=== PATIENT | female | born 1985 | race Caucasian/White ===

== ENCOUNTER 2023-01-21 18:42 | Inpatient (IN) | payer OTHER ==
[2023-01-21 18:54] VITALS: BMI 29.0
[2023-01-21] MEDS ORDERED: DEXTROSE 50%-WATER - 25 GM/50 ML VIAL IVPUSH ONE (19:55)
[2023-01-21] MEDS ORDERED: DEXTROSE 50%-WATER 25 GM/50 ML DISP.SYRIN ONE (19:57)
[2023-01-21 19:59] LABS: BASO % 0.4 % (0-2.0); EOS % 1.3 % (0-4.5); HEMOGLOBIN 8.7 GM/dL (10.7-15.3); LYMPH % 14.2 % (8-40); MCH 23.8 pg (25.7-33.7); MCHC 33.5 g/dl (32.0-36.0); MEAN PLT VOLUME 6.9 fl (7.5-11.1); MONO % 10.7 % (3.8-10.2); NEUT % 73.4 % (42.8-82.8); PLATELET COUNT 482 10^3/uL (134-434); RBC 3.66 M/mm3 (3.60-5.2); RDW 15.7 % (11.6-15.6); WHITE BLOOD COUNT 9.6 K/mm3 (4.0-10.0)
[2023-01-21 20:07] LABS: INR 1.06 (0.83-1.09); PROTHROMBIN TIME (PATIENT) 12.3 SEC (9.7-13.0)
[2023-01-21 20:11] LABS: ACTIVATED PTT 30.6 SECONDS (25.2-36.5)
[2023-01-21 20:18] LABS: CHLORIDE 106 mmol/L (98-107); SODIUM 137 mmol/L (136-145)
[2023-01-21 20:20] LABS: CALCIUM 8.6 mg/dL (8.5-10.1)
[2023-01-21 20:21] LABS: ANION GAP 5 MMOL/L (8-16); BLOOD UREA NITROGEN 14.8 mg/dL (7-18); CO2 27 mmol/L (21-32); GLUCOSE,RANDOM 74 mg/dL (74-106); MAGNESIUM 2.2 mg/dL (1.8-2.4)
[2023-01-21 20:23] LABS: CREATININE 0.9 mg/dL (0.55-1.3)
[2023-01-21 20:24] LABS: SGOT/AST 15 U/L (15-37); SGPT/ALT 20 U/L (13-61)
[2023-01-21 20:25] LABS: BILIRUBIN,TOTAL 0.1 mg/dL (0.2-1); TOT PROT 7.9 g/dl (6.4-8.2)
[2023-01-21 20:27] LABS: ALK PHOS 70 U/L (45-117)
[2023-01-21] MEDS ORDERED: DEXTROSE 5%-NORMAL SALINE 1,000 ML IV SCH (22:00)
[2023-01-21] MEDS ORDERED: ACETAMINOPHEN 325 MG TABLET (FP) PO ONE (23:54)
[2023-01-22] MEDS: MELATONIN 5 MG TABLETS PO ONE ×2 (00:01→02:05)
[2023-01-22] MEDS ORDERED: COSYNTROPIN 0.25 MG VIAL IVPUSH ONE (06:00)
[2023-01-22 11:21] LABS: HEMATOCRIT 24.5 % (32.4-45.2); HEMOGLOBIN 8.1 GM/dL (10.7-15.3); MCH 23.8 pg (25.7-33.7); MCHC 33.2 g/dl (32.0-36.0); MEAN CELL VOLUME 71.5 fl (80-96); MEAN PLT VOLUME 6.6 fl (7.5-11.1); PLATELET COUNT 424 10^3/uL (134-434); RBC 3.43 M/mm3 (3.60-5.2); WHITE BLOOD COUNT 5.7 K/mm3 (4.0-10.0)
[2023-01-22 11:44] LABS: CALCIUM 8.7 mg/dL (8.5-10.1)
[2023-01-22 11:45] LABS: BLOOD UREA NITROGEN 9.4 mg/dL (7-18)
[2023-01-22 11:48] LABS: CREATININE 0.6 mg/dL (0.55-1.3)
[2023-01-22] MEDS ORDERED: ACETAMINOPHEN 325 MG TABLET (FP) PO ONE (15:53)
[2023-01-23 06:30] VITALS: RESP 18
[2023-01-23 08:59] VITALS: BP 115/62; PULSE 77; TEMP 98.6
[2023-01-23 10:38] LABS: COCAINE, UR NEGATIVE (NEGATIVE); METHADONE, UR NEGATIVE (NEGATIVE)
[2023-01-23 10:39] LABS: OPIATES, URI NEGATIVE (NEGATIVE); PHENCYCLIDINE,URINE NEGATIVE (NEGATIVE); URINE BARBITURATES NEGATIVE (NEGATIVE)
[2023-01-23 10:49] LABS: URINE AMPHETAMINES NEGATIVE (NEGATIVE); URINE BENZODIAZEPINES NEGATIVE (NEGATIVE)
[2023-01-23 11:25] LABS: BASO % 0.7 % (0-2.0); EOS % 1.1 % (0-4.5); HEMATOCRIT 26.8 % (32.4-45.2); HEMOGLOBIN 8.8 GM/dL (10.7-15.3); MCH 23.5 pg (25.7-33.7); MCHC 32.9 g/dl (32.0-36.0); MEAN CELL VOLUME 71.5 fl (80-96); MEAN PLT VOLUME 6.5 fl (7.5-11.1); MONO % 9.3 % (3.8-10.2); NEUT % 65.9 % (42.8-82.8); PLATELET COUNT 462 10^3/uL (134-434); RBC 3.74 M/mm3 (3.60-5.2); RDW 16.1 % (11.6-15.6); WHITE BLOOD COUNT 7.2 K/mm3 (4.0-10.0)
[2023-01-23 12:25] LABS: ALBUMIN 3.7 g/dl (3.4-5.0); BLOOD UREA NITROGEN 8.7 mg/dL (7-18); TOT PROT 7.5 g/dl (6.4-8.2)
[2023-01-23 12:28] LABS: CREATININE 0.6 mg/dL (0.55-1.3)
[2023-01-23 12:29] LABS: BILIRUBIN,TOTAL 0.5 mg/dL (0.2-1)
[2023-01-24 14:09] LABS: INSULIN 9.3 uIU/mL (2.6-24.9)
== END 2023-01-23 11:22 | disposition home or self-care (01) | DRG 424 ==
LOC: JER 18:42 → JERBED 22:04 → J5S 23:19
PROVIDERS: ADMIT Internal Medicine; ATTEND Internal Medicine
DX: E16.1 Other hypoglycemia (principal); R55 Syncope and collapse; E53.8 Deficiency of other specified B group vitamins; D50.8 Other iron deficiency anemias
CPT/HCPCS: 0241U-QW; 36415; 70450-TC; 71045-TC-FY; 80048; 80053; 80307; 82010; 82533; 82962; 83036; 83525; 83605; 83735; 84436; 84439; 84443; 84484; 84681; 84703; 85025; 85027; 85610; 85730; 86850; 86900; 86901; 93005; 93010; 99285-25; J0834